=== PATIENT | female | born 1970 | race Caucasian/White ===

== ENCOUNTER 2017-12-24 07:49 | Day surgery (SDC) | payer OTHER ==
[~2017-12-24 07:49] MED LIST: Bupivacaine 0.5% 10 ML SDV ONE; Lactated Ringers 1,000 ML IV SCH; ceFAZolin 1 GM Vial ONE; cefOXitin 2 GM in Premix Bag 1 BAG IV ONE
[2017-12-24] MEDS ORDERED: Rocuronium 10 MG/ML 10 ML Syringe ONE (08:54)
[2017-12-24] MEDS ORDERED: Propofol 200 MG/20 ML SDV ONE (08:54)
[2017-12-24] MEDS ORDERED: Midazolam 1 MG/ML 2 ML SDV ONE (08:55)
[2017-12-24] MEDS ORDERED: fentaNYL 250 MCG/5 ML SDV ONE (08:55)
[2017-12-24] MEDS ORDERED: Lidocaine 2% 5 ML SDV ONE (08:55)
[2017-12-24] MEDS ORDERED: ceFAZolin/Dextrose,Iso-Osmotic 2 GM/50 ML Duplex Bag IV ONE (08:55)
--- NOTE | 2017-12-24 09:22 | PCM.PREANE ---
Preanesthetic Assessment - Procedure Proposed Procedure: laparoscopic cholecysectomy - Anesthesia/Transfusion/Family Hx Anesthesia History: Prior Anesthesia Reaction Family History of Anesthesia Reaction: No Transfusion History: No Prior Transfusion(s) Intubation History: Unknown Additional History: experience with lap hysterectomy few years ago; severe pruritis with hydrocodone - Review of Systems General: Other (last episode 10 days ago) Pulmonary: No Symptoms Cardiovascular: Other (HTn - treated with PM meds (last PM)/ HLD) Gastrointestinal: Abdominal Pain, Other (GERD) Neurological: No Symptoms Other: Reports: Depression - Physical Assessment NPO Status Date: 12/23/17 NPO Status Time: 20:30 O2 Sat by Pulse Oximetry: 98 Respiratory Rate: 16 Vital Signs: Last Vital Signs Temp 98.6 F 12/24/17 08:50 Pulse 63 12/24/17 08:50 Resp 16 12/24/17 08:50 BP 124/74 12/24/17 08:50 Pulse Ox 98 12/24/17 08:50 Height: 5 ft 7 in Weight: 214 lb ASA Class: 3 Mental Status: Alert & Oriented x3 Airway Class: Mallampati = 1 Dentition: Reports: Normal Dentition Thyro-Mental Finger Breadths: 3 Mouth Opening Finger Breadths: 3 ROM/Head Extension: Full Lungs: Clear to Auscultation, Normal Respiratory Effort Cardiovascular: Regular Rate, Regular Rhythm, No Murmurs Other: Hx of nausea with anesthetic - spinal for childbirth - Allergies Allergies/Adverse Reactions: Allergies Allergy/AdvReac Type Severity Reaction Status Date / Time hydrocodone Allergy Itching Verified 12/20/17 11:16 - Blood Blood Available: No Product(s) Available: None - Anesthesia Plan Pre-Op Medication Ordered: None - Acknowledgements Anesthesia Type Planned: General Anesthesia (OET) Pt an Appropriate Candidate for the Planned Anesthesia: Yes Alternatives and Risks of Anesthesia Discussed w Pt/Guardian: Yes Pt/Guardian Understands and Agrees with Anesthesia Plan: Yes PreAnesthesia Questionnaire Cardiovascular History: Reports: High Cholesterol, Hypertension Gastrointestinal History: Reports: GERD RETRIEVAL SPECIALIST History: Reports: Musculoskeletal History: Reports: Back Pain, Chronic Neurological History: Reports: Other (See Below) Other Neuro History: "nerve pain" Psychiatric History: Reports: Depression Endocrine/Metabolic History: Reports: Obesity/BMI 30+ Oncologic (Cancer) History: Reports: Basal Cell Carcinoma Other Oncologic History: removed from arm - Past Surgical History Cardiovascular Surgical History: Reports: None Female Surgical History: Reports: Section, Hysterectomy, Oophorectomy Musculoskeletal Surgical History: Reports: Carpal Tunnel Other Musculoskeletal Surgeries/Procedures:: bilateral CTR - SUBSTANCE USE Smoking Status *Q: Never Smoker Recreational Drug Use History: No - HOME MEDS Home Medications: Home Meds Gabapentin [Neurontin] 100 mg PO BEDTIME 12/20/17 [History] Metoprolol Succinate 75 mg PO QPM 12/20/17 [History] Potassium Chloride 20 meq PO DAILY 12/20/17 [History] Triamterene/Hydrochlorothiazid [Triamterene-HCTZ 75-50 MG] 1 tab PO DAILY [History] amLODIPine Besylate [Amlodipine Besylate] 10 mg PO QPM 12/20/17 [History] atorvaSTATin Calcium [Atorvastatin Calcium] 10 mg PO QPM 12/20/17 [History] traMADol HCl [Tramadol HCl] 50 mg PO TID PRN 12/20/17 [History] - CURRENT (IN HOUSE) MEDS Current Meds: Current Medications Lactated Ringer's (Ringers, Lactated) 1,000 mls @ 125 mls/hr IV ASDIRECTED CLARA Last Admin: 12/24/17 09:10 Dose: 125 mls/hr Discontinued Medications Bupivacaine HCl (Sensorcaine-Mpf 0.5%) Confirm Administered Dose 30 ml .ROUTE .STK-MED ONE Stop: 12/24/17 07:22 Cefazolin Sodium (Ancef) Confirm Administered Dose 1 gm .ROUTE .STK-MED ONE Stop: 12/24/17 07:22 Cefazolin Sodium/Dextrose (Ancef) Confirm Administered Dose 2 gm IV .STK-MED ONE Stop: 12/24/17 08:56 Fentanyl (Sublimaze) Confirm Administered Dose 250 mcg .ROUTE .STK-MED ONE Stop: 12/24/17 08:56 Cefoxitin Sodium 2 gm/ Premix 50 mls @ 100 mls/hr IV ONETIME ONE Stop: 12/24/17 07:29 Lidocaine (Xylocaine-Mpf 2%) Confirm Administered Dose 5 ml .ROUTE .STK-MED ONE Stop: 12/24/17 08:56 Midazolam HCl (Versed 1 Mg/Ml) Confirm Administered Dose 2 mg .ROUTE .STK-MED ONE Stop: 12/24/17 08:56 Propofol (Diprivan 20 Ml) Confirm Administered Dose 200 mg .ROUTE .STK-MED ONE Stop: 12/24/17 08:55 Rocuronium Nekoma (Zemuron) Confirm Administered Dose 100 mg .ROUTE .STK-MED ONE Stop: 12/24/17 08:55
[2017-12-24] MEDS ORDERED: Scopolamine 1.5 MG Transdermal Patch TRDERM PRN (09:25)
[2017-12-24] MEDS ORDERED: Ondansetron 4 MG/2 ML SDV ONE (10:19)
[2017-12-24] MEDS ORDERED: Phenylephrine 1% 10 MG/ML SDV ONE (10:31)
[2017-12-24] MEDS ORDERED: Morphine 4 MG/ML Syringe IVPUSH PRN (11:18)
[2017-12-24] MEDS ORDERED: traMADol 50 MG Tab PO PRN (11:20)
--- NOTE | 2017-12-24 11:22 | PCM.OPNOTE ---
- General Post-Op/Procedure Note Date of Surgery/Procedure: 12/24/17 Operative Procedure(s): Laparoscopic cholecystectomy Pre Op Diagnosis: Chronic right upper quadrant pain. Abnormal hepatobiliary scan. Post-Op Diagnosis: Same Anesthesia Technique: General ET Tube (ASA III) Primary Surgeon: Fabian Fernandez Fluid Replacement, Intraop: 1,100 Output, Urine Amount: 100 EBL in mLs: 15 Condition: Good Free Text/Narrative:: DICTATION 425391 CPT CODE 16269
[2017-12-24] MEDS ORDERED: Lactated Ringers 1,000 ML IV SCH (11:30)
[2017-12-24] MEDS ORDERED: Acetaminophen 1,000 MG in Premix Bag 1 BAG IV ONE (11:33)
[2017-12-24] MEDS: fentaNYL 100 MCG/2 ML SDV IVPUSH PRN ×2 (11:46→11:52)
--- NOTE | 2017-12-24 11:52 | OR ---
SURGEON: Fabian Fernandez M.D. DATE OF PROCEDURE: 12/24/2017 OPERATION PERFORMED: Laparoscopic cholecystectomy. ANESTHESIA: General endotracheal. ASA CLASSIFICATION: III PREOPERATIVE DIAGNOSIS: Chronic cholecystitis with right upper quadrant pain. POSTOPERATIVE DIAGNOSIS: Chronic cholecystitis with right upper quadrant pain. ESTIMATED BLOOD LOSS: 15 mL. INTRAOPERATIVE FLUID REPLACEMENT: 1100 mL of crystalloid. INTRAOPERATIVE URINE OUTPUT: 100 mL. DESCRIPTION OF PROCEDURE: The patient was taken to the operating room, placed in the operating table in the supine position. Time-out was called for appropriate identification of the patient and procedure. Thigh-high TEDs and sequential compression boots were placed. Following satisfactory attainment of general endotracheal anesthesia, a Gates catheter was placed in the patient's urinary bladder. The abdomen was then prepped with DuraPrep solution. Sterile drapes were applied. The skin just below the umbilicus was infiltrated with 0.5% Marcaine solution. The skin incision was made and deepened through the subcutaneous tissue obtaining hemostasis with the use of electrocautery. The Veress needle was introduced into the peritoneal cavity. The saline drop test was positive. Carbon dioxide pneumoperitoneum was established with the relief set at 13 cm of water. Once a satisfactory pneumoperitoneum was obtained, 5-mm camera and port were placed through the infraumbilical incision. Under camera vision, 12-mm subxiphoid, 5- mm midclavicular, and 5-mm anterior axillary ports were placed. Each incision had preemptively been infiltrated with 0.5% Marcaine solution. The gallbladder was grasped, adhesions were taken down, and the cholecystohepatic triangle was dissected free obtaining good critical views of both the cystic duct and cystic artery, which were serially Hemoclipped and divided with the laparoscopic Metzenbaum scissors. With that accomplished, the gallbladder was dissected away from its bed using electrocautery. No bile was spilled and there was no unexplained bile in the bed of the gallbladder. There was oozing from the liver bed and Surgicel was placed into the bed of the gallbladder. After amputating the gallbladder, this was placed in an Endopouch. The right upper quadrant was irrigated with 500 mL of saline containing 1 g of Ancef. That fluid was all aspirated. No other bleeding was noted. The right hemidiaphragm was then irrigated with 250 mL of saline containing 20 mL of 0.5% Marcaine solution. That solution was left in place. With that accomplished, the 12-mm subxiphoid and pouch containing gallbladder were removed. Again, under camera vision, the 5-mm anterior axillary and midclavicular ports were removed, and finally the infraumbilical camera and port were removed. The wounds were inspected for hemostasis. No bleeding was noted. The incisions were then closed with the infraumbilical and subxiphoid incisions being closed in 2 layers with subcutaneous 3-0 Vicryl and subcuticular 4-0 Monocryl. The anterior, axillary, and midclavicular incisions were closed with subcuticular 4-0 Monocryl. All incisions were Steri-Stripped and dressed with sterile Tegaderm pads. Sponge, needle, and instrument counts were all correct. The Gates catheter was removed prior to emergence from anesthesia. Following emergence from anesthesia and extubation, the patient was taken to recovery room in satisfactory condition. YAKELIN WOODS /[id number]
--- NOTE | 2017-12-24 12:01 | PCM.POSTAN ---
POST ANESTHESIA ASSESSMENT - MENTAL STATUS Mental Status: Alert, Oriented - RESPIRATORY Respiratory Status: Respiratory Rate WNL, Airway Patent, O2 Saturation Stable - CARDIOVASCULAR CV Status: Pulse Rate WNL, Blood Pressure Stable - GASTROINTESTINAL GI Status: No Symptoms - POST OP HYDRATION Hydration Status: Adequate & Stable
[2017-12-24] MEDS ORDERED: diphenhydrAMINE 50 MG/ML SDV IVPUSH ONE (12:41)
[2017-12-24] MEDS ORDERED: diphenhydrAMINE 50 MG/ML SDV ONE (12:49)
--- NOTE | 2017-12-24 13:29 | PCM48HPAN ---
Post Anesthesia Note - EVALUATION WITHIN 48HRS OF ANESTHETIC Vital Signs in Normal Range: Yes Patient Participated in Evaluation: Yes Respiratory Function Stable: Yes Airway Patent: Yes Cardiovascular Function Stable: Yes Hydration Status Stable: Yes Pain Control Satisfactory: Yes Nausea and Vomiting Control Satisfactory: Yes Mental Status Recovered: Yes Resp Rate: 14 - COMMENTS/OBSERVATIONS Free Text/Narrative:: still with tiredness and intermittent mild nausea; conversant with approval of her care so far today. Plan discharge to home within the hour.
[2017-12-24] MEDS ORDERED: Nalbuphine 10 MG/1 ML Vial IVPUSH ONE (14:20)
== END 2017-12-24 14:45 | disposition home or self-care (01) ==
LOC: MW.SDS 07:49
PROVIDERS: ATTEND Surgery
DX: K81.1 Chronic cholecystitis (principal); I10 Essential (primary) hypertension; E66.9 Obesity, unspecified; Z68.33 Body mass index [BMI] 33.0-33.9, adult; E78.00 Pure hypercholesterolemia, unspecified; Z79.899 Other long term (current) drug therapy; Z88.5 Allergy status to narcotic agent
CPT/HCPCS: 47562; A9270; J0131; J0690; J1200; J2250; J2370; J2405; J2704; J3010; J3490; J7120; 00790; 88304